=== PATIENT | female | born 1970 | race American Indian/Alaskan Native ===

== ENCOUNTER 2017-07-09 06:20 | Emergency (ER) | payer MEDICAID ==
[2017-07-09 07:42] VITALS: BP 127/82
--- NOTE | 2017-07-09 09:14 | Emergency Department Report ---
ED Back Pain/Injury HPI - General Chief Complaint: Extremity Problem,Nontraumatic Stated Complaint: BACK,RIGHT LEG PAIN Time Seen by Provider: 07/09/17 09:03 Source: patient Limitations: No Limitations - History of Present Illness Initial Comments: 47-year-old female past medical history asthma, COPD, chronic right hip pain presents with complaint of right hip pain travels through buttock down lateral aspect of right thigh. Patient denies any recent falls or trauma. Denies bladder or bowel incontinence denies hematuria denies increased urinary frequency denies dysuria. Denies abdominal pain chest pain palpitations fever or chills. Patient is ambulatory without assistance. Describes pain as sharp pain that radiates down right hip and buttock. States she has had this intermittently for several years. Denies any new symptoms. Patient is awake alert and oriented 3 accompanied by at bedside. States she occasionally experiences lower back pain associated with right hip pain. States she recently moved from [place] to [facility] and does not have primary care here. Patient requesting primary care. MD Complaint: back pain -: During the night, Last night Severity: moderate Severity scale (0 -10): 6 Quality: aching Consistency: intermittent Worsens With: walking Context: while lifting, turning/twisting Associated Symptoms: denies other symptoms - Related Data Previous Rx's Medication Instructions Recorded Last Taken Type Acetaminophen/Codeine [Tylenol 1 tab PO Q6H PRN #5 tab 07/09/17 Unknown Rx /Codeine # 3 tab] Famotidine [Pepcid] 20 mg PO BID PRN #20 tablet 07/09/17 Unknown Rx Ibuprofen [Motrin] 600 mg PO Q8H PRN #20 tablet 07/09/17 Unknown Rx Allergies Allergy/AdvReac Type Severity Reaction Status Date / Time No Known Allergies Allergy Unverified 07/09/17 07:42 ED Review of Systems ROS: Stated complaint: BACK,RIGHT LEG PAIN Other details as noted in HPI Constitutional: denies: chills, fever Eyes: denies: eye pain, eye discharge, vision change ENT: denies: ear pain, throat pain Respiratory: denies: cough, shortness of breath, wheezing Cardiovascular: denies: chest pain, palpitations Endocrine: no symptoms reported Gastrointestinal: denies: abdominal pain, nausea, diarrhea Genitourinary: denies: urgency, dysuria, discharge Musculoskeletal: back pain. denies: joint swelling, arthralgia Skin: denies: rash, lesions Neurological: denies: headache, weakness, paresthesias Psychiatric: denies: anxiety, depression Hematological/Lymphatic: denies: easy bleeding, easy bruising ED Past Medical Hx - Past Medical History Previous Medical History?: Yes Hx Asthma: Yes Hx COPD: Yes Additional medical history: DDD, "no cartilage in R hip" - Surgical History Past Surgical History?: No - Social History Smoking Status: Never Smoker Substance Use Type: None - Medications Home Medications: Home Medications Medication Instructions Recorded Confirmed Last Taken Type Acetaminophen/Codeine [Tylenol 1 tab PO Q6H PRN #5 tab 07/09/17 Unknown Rx /Codeine # 3 tab] Famotidine [Pepcid] 20 mg PO BID PRN #20 tablet 07/09/17 Unknown Rx Ibuprofen [Motrin] 600 mg PO Q8H PRN #20 tablet 07/09/17 Unknown Rx ED Physical Exam - General Limitations: No Limitations General appearance: alert, in no apparent distress - Head Head exam: Present: atraumatic, normocephalic - Eye Eye exam: Present: normal appearance, PERRL, EOMI - ENT ENT exam: Present: mucous membranes moist - Neck Neck exam: Present: normal inspection - Respiratory Respiratory exam: Present: normal lung sounds bilaterally. Absent: respiratory distress - Cardiovascular Cardiovascular Exam: Present: regular rate, normal rhythm. Absent: systolic murmur, diastolic murmur, rubs, gallop - GI/Abdominal GI/Abdominal exam: Present: soft, normal bowel sounds - Extremities Exam Extremities exam: Present: normal inspection - Back Exam Back exam: Present: normal inspection, full ROM, paraspinal tenderness (some right-sided paraspinal L-spine tenderness but no CVA tenderness and no midline cervical thoracic or lumbar spinal tenderness) - Neurological Exam Neurological exam: Present: alert, oriented X3, CN II-XII intact, normal gait - Expanded Neurological Exam Expanded Patient oriented to: Present: person, place, time Cranial nerves: EOM's Intact: Normal, Facial Sensation: Normal Cerebellar function: Finger to Nose: Normal, Heel to [place]: Normal, Rom[place]: Normal Sensory exam: Upper Extremity Light Touch: Normal, Lower Extremity Light Touch: Normal Motor strength exam: RUE: 5, LUE: 5, RLE: 5, LLE: 5 Best Eye Response (Anthony): (4) open spontaneously Best Motor Response ([place]): (6) obeys commands Best Verbal Response (Anthony): (5) oriented Anthony Total: 15 - Psychiatric Psychiatric exam: Present: normal affect, normal mood - Skin Skin exam: Present: warm, dry, intact, normal color. Absent: rash ED Course Vital Signs 07/09/17 07:31 Temperature 97.6 F Pulse Rate 88 Respiratory 18 Rate Blood Pressure 127/82 O2 Sat by Pulse 97 Oximetry ED Medical Decision Making - Medical Decision Making A/P: Degenerative disc disease L spine, sciatica 1-clinical signs of cauda equina. Deep tendon reflexes are intact bilaterally knee and ankles, no saddle paraesthesias, no bowel incontinence reported. Patient is ambulatory without assistance 2-follow-up with primary care orthopedics and neurosurgery 3-Motrin when necessary, short course Tylenol 3 when necessary 4- x-ray hip unremarkable. X-ray L-spine consistent with degenerative L-spine disease. Critical care attestation.: If time is entered above; I have spent that time in minutes in the direct care of this critically ill patient, excluding procedure time. ED Disposition Clinical Impression: Sciatica of right side Disposition: DC-01 TO HOME OR SELFCARE Is pt being admited?: No Does the pt Need Aspirin: No Condition: Stable Instructions: Sciatica (ED), Degenerative Disc Disease (ED) Prescriptions: Acetaminophen/Codeine [Tylenol /Codeine # 3 tab] 1 tab PO Q6H PRN #5 tab PRN Reason: Pain Famotidine [Pepcid] 20 mg PO BID PRN #20 tablet PRN Reason: Indigestion Ibuprofen [Motrin] 600 mg PO Q8H PRN #20 tablet PRN Reason: Pain Referrals: [facility] [Provider Group] - 3-5 Days IFRAH HOOK MD [Staff Physician] - 3-5 Days Forms: Accompanied Note Time of Disposition: 10:27
--- NOTE | 2017-07-09 09:52 | XRay Report ---
RIGHT HIP, 2 views: History: Right hip pain. The bony architecture is intact without evidence of fracture or dislocation. No significant soft tissue abnormality is seen. IMPRESSION: Unremarkable right hip.
--- NOTE | 2017-07-09 09:53 | XRay Report ---
LUMBOSACRAL SPINE, 3 VIEWS: History: Lower back pain Findings: The vertebral bodies, disk spaces and posterior elements are intact. No compression deformity or malalignment. Mild disc space narrowing at L5-S1. Mild facet arthropathy at L3-4, L4-5 and L5-S1. The SI joints are symmetric and unremarkable. Impression: Mild lumbar spondylosis. No acute process.
[2017-07-09] MEDS ORDERED: MOTRIN PO ONE (10:01)
[2017-07-09] MEDS ORDERED: NORCO 5/325 PO ONE (10:01)
== END 2017-07-09 11:20 | disposition home or self-care (01) ==
LOC: ED 06:20
DX: M54.31 Sciatica, right side (principal); J44.9 Chronic obstructive pulmonary disease, unspecified
CPT/HCPCS: 72100; 99283